=== PATIENT | male | born 1970 | race Caucasian/White ===

== ENCOUNTER 2025-04-28 06:17 | Day surgery (SDC) | payer OTHER, SELFPAY ==
[2025-04-14 10:59] LABS: Hematocrit 45.9 % (39.0-52.0); Hemoglobin 15.3 g/dL (13.0-18.0); Mean Corp Hgb Conc. 33.3 g/dL (33.0-37.0); Mean Corpuscular Hgb 28.2 pg (27.0-31.0); Mean Corpuscular Volume 84.7 fL (80.0-94.0); Mean Platelet Volume 10.4 fL (7.4-10.4); Platelet Count 182 10^3/uL (130-400); Red Blood Cell Count 5.42 10^6/uL (4.70-6.10); Red Cell Dist. Width 13.1 % (11.5-14.5); White Blood Cell Count 4.9 10^3/uL (4.8-10.8)
[2025-04-14 11:01] LABS: INR 0.87; PT 12.2 Sec (11.4-14.6)
[2025-04-14 11:02] LABS: APTT 33.2 Sec (23.4-35.0)
[2025-04-14 11:27] LABS: ALT (SGPT) 43 U/L (0-50); AST (SGOT) 35 U/L (17-59); Albumin 4.5 g/dl (3.5-5.0); Alkaline Phosphatase 42 U/L (38-126); Blood Urea Nitrogen 9 mg/dl (9-20); Calcium 9.3 mg/dl (8.4-10.2); Carbon Dioxide 26 mmol/L (22-30); Chloride 110 mmol/L (98-107); Glucose 96 mg/dl (70-99); HDL Cholesterol 44 mg/dl; LDL Cholesterol, Calculated 49 mg/dl; Potassium 5.3 mmol/L (3.5-5.1); Sodium 142 mmol/L (135-145); Total Bilirubin 0.3 mg/dl (0.2-1.3); Total Cholesterol 104 mg/dl (50-199); Triglyceride 57 mg/dl (10-149); Very Low Density Lipoprotein 11 mg/dl (0-30); eGFR > 60.00
[2025-04-14 14:17] VITALS: BMI 27.4
--- NOTE | 2025-04-19 13:27 | PTCARENOTE ---
Patients 04/14 potassium 5.3- Dr. Cummings requested value be evaluated by anesth. Reviewed by Dr. Angulo- no additional interventions required- LM for Valeria @ Dr. Rodriguez office regarding same.
[2025-04-28] VITALS (8 sets, daily range): BP systolic 91–136; BP diastolic 56–93; BMI 27.4
[2025-04-28] MEDS: NORMOSOL-R/PLASMALYTE-A 1000 IV (09:55)
== END 2025-04-28 13:51 | disposition home or self-care (01) ==
LOC: SDS 06:17
PROVIDERS: ATTENDING PHYSICIAN Otolaryngology; FAMILY PHYSICIAN Internal Medicine
DX: J34.89 Other specified disorders of nose and nasal sinuses (principal); J34.3 Hypertrophy of nasal turbinates
CPT/HCPCS: 30802; 36415; 80053; 80061; 85027; 85610; 85730; 93005